=== PATIENT | male | born 1975 | race Caucasian/White ===

== ENCOUNTER → 2017-07-16 | Outpatient (CLI) | payer MEDICAID, SELFPAY | PROVIDERS: Visit Provider Nurse Practitioner Family | DX: R53.83 Other fatigue (principal); E55.9 Vitamin D deficiency, unspecified | CPT/HCPCS: 80053; 80061; 82306; 83036; 84439; 84443; 85025 ==

== ENCOUNTER → 2017-09-04 09:29 | Outpatient (REF) | payer MEDICAID, SELFPAY ==
[2017-09-05 10:51] LABS: T4 (Thyroxine) 8.4 ug/dl (4.7-13.3); Thyroid Stimulating Hormone 2.68 uIU/ml (0.358-3.740)
[2017-09-06 19:09] LABS: Vitamin D 25 Hydroxy 16.3 ng/mL (30.0-100.0)
== END ==
LOC: LAB 09:29
PROVIDERS: Visit Provider Nurse Practitioner Family
DX: R53.83 Other fatigue (principal); E55.9 Vitamin D deficiency, unspecified
CPT/HCPCS: 82652; 84436; 84443

== ENCOUNTER → 2017-09-05 09:29 | Outpatient (CLI) | payer MEDICAID, SELFPAY | PROVIDERS: Visit Provider Nurse Practitioner Family | DX: R53.83 Other fatigue (principal); E55.9 Vitamin D deficiency, unspecified ==

== ENCOUNTER → 2021-09-27 16:09 | Outpatient (CLI) | payer OTHER, SELFPAY ==
[2021-09-27 16:38] LABS: Basophils # 0.1 K/mm3 (0-0.2); Basophils % 1.4 % (0.1-2.0); Eosinophils # 0.1 K/mm3 (0.0-0.4); Eosinophils % 1.1 % (0.1-12.0); Hemoglobin 13.4 g/dL (14.1-18.0); Lymphocytes # 1.7 K/mm3 (0.7-4.5); Lymphocytes % 39.2 % (10-50); Mean Corpuscular Hemoglobin 32.5 pg (27.0-31.2); Mean Corpuscular Volume 101.7 fl (80-94); Monocytes # 0.3 K/mm3 (0.1-1.0); Monocytes % 5.9 % (1.7-9.3); Neutrophils # 2.3 K/mm3 (1.8-7.8); Neutrophils % 52.5 % (37.0-80.0); Platelet Count 207 K/mm3 (142-424); Red Blood Count 4.13 M/mm3 (4.60-6.20); Red Cell Distribution Width 12.9 % (11.5-17.5); White Blood Count 4.3 K/mm3 (4.8-10.8)
[2021-09-27 18:07] LABS: Alanine Aminotransferase 18 U/L (12-78); Albumin Level 4.1 g/dl (3.5-5.0); Alkaline Phosphatase 50 U/L (38-126); Anion Gap 9.1 mEq/L (5-15); Aspartate Amino Transferase 28 U/L (17-59); Bilirubin,Total 0.8 mg/dl (0.2-1.3); Blood Urea Nitrogen 12 mg/dl (9-20); Calcium 8.5 mg/dl (8.4-10.2); Carbon Dioxide 29 mmol/L (22.0-30.0); Chloride 102 mmol/L (98-107); Cholesterol 130 mg/dl (140-200); Estimated Glomerular Filt Rate 103 ml/min (>60); GFR (African American) 125 ML/MIN (>60); Globulin 2.1 g/dL (1.3-3.2); Glucose 97 mg/dl (74-100); HDL Cholesterol 43 mg/dl (40-60); Potassium 4.1 mmoL/L (3.5-5.1); Sodium 136 mmol/L (136-145); Total Protein,Serum 6.2 g/dl (6.3-8.2); Triglycerides 90 mg/dl (30-150); VLDL Cholesterol 18 mg/dL (0-40)
[2021-09-27 18:23] LABS: T4 (Thyroxine) 8.6 ug/dl (5.53-11.0)
[2021-09-27 18:37] LABS: Thyroid Stimulating Hormone 1.68 uIU/mL (0.465-4.68)
== END ==
PROVIDERS: PCP Nurse Practitioner Family; Visit Provider Internal Medicine
DX: R07.9 Chest pain, unspecified (principal)
CPT/HCPCS: 80053; 80061; 84436; 84443; 85025

== ENCOUNTER → 2021-10-23 13:03 | Outpatient (CLI) | payer OTHER, SELFPAY ==
--- NOTE | 2021-10-23 13:04 | CA_ITS ---
APPROVED REPORT Exam: Exercise Treadmill Technologist: Tiny Maya, Ht: 6 ft 4 in Wt: 266 lbs BSA: 2.50 m2 HR: 49 bpm BP: 124/81 mmHg Medical History Medications: BuPROPION HCI,,,,, Stress Test Details Test: Armando HR Resting HR: 55 bpm Max Heart Rate (APMHR): 172.479660 bpm Max HR Achieved: 150 bpm Target HR (85% APMHR): 146.702504 bpm % of APMHR: 87.21 Recovery HR: 78 bpm BP Resting BP: 113/74 mmHg Max BP: 210/78 mmHg Recovery BP: 153.0/82.0 mmHg ECG Resting ECG: Sinus tammy, ST-T abns inferiorly Clinical Exercise duration: 08:13 min Highest Stage Achieved: III Exercise capacity: 10.1 METs Stress ECG Conclusion Exercised 8:13 into stage III of Armando Protocol. Max HR: 150 %of PM: 87% Max BP: 210/90 METs: 10.1 Test stopped due to: SOA, Fatigue Symptoms: No CP Arrhythmias/Ectopy: Occ PVC, one V. couplet. ST-T Changes: 1mm horizontal ST depression laterally. Exaggeration of baseline ST-T abns inderiorly. Conclusion: Abn GXT. GXT only (no imaging) Test Summary Stage 3 02:00 14.0 3.4 150 . 210/ 78 . . REST . . . . . . . Standing REST 03:11 0.0 0.0 55 . 113/ 74 . . Stage 1 01:00 10.0 1.7 87 . . . . Stage 1 02:00 10.0 1.7 95 . . . . Stage 1 03:00 10.0 1.7 92 . 160/ 65 . . Stage 2 01:00 12.0 2.5 106 . . . . Stage 2 02:00 12.0 2.5 116 . . . . Stage 2 03:00 12.0 2.5 123 . 182/ 70 . . Stage 3 01:00 14.0 3.4 140 . . . . Stage 3 02:00 14.0 3.4 150 . 210/ 78 . . Stage 3 02:13 14.0 3.4 150 . 210/ 78 . Stop exercise at 08:13 RECOVERY 01:00 0.0 0.0 120 . . . . RECOVERY 02:00 0.0 0.0 109 . 210/ 90 . . RECOVERY 03:00 0.0 0.0 100 . 210/ 90 . . RECOVERY 04:00 0.0 0.0 81 . 210/ 90 . . RECOVERY 05:00 0.0 0.0 76 . 188/ 86 . . RECOVERY 06:00 0.0 0.0 85 . 156/ 84 . . RECOVERY 07:00 0.0 0.0 78 . 153/ 82 . . RECOVERY 07:25 0.0 0.0 85 . 153/ 82 . . Electronically signed by : Bulmaro Miller MD 10/23/2021 19:15:36
--- NOTE | 2021-10-23 13:04 | CA_ITS ---
APPROVED REPORT EXAM: Comprehensive 2D, Doppler, and color-flow Echocardiogram Signs Cleaner: Felisha Mills RVT Ht: 6 ft 4 in Wt: 266lbs BSA: 2.50 BP: 132/82 mmHg Indications: CP,SMOKER,YOUNGBLOOD 2D Dimensions LVOT 2.15 cm (M/F) 1.5-2.5 LA Volume 37.40 mL LA Volume Index 14.96 mL/m2 (M/F) 16-34 M-Mode Dimensions RVDd 2.42 cm (0.9-2.6) LA Diam 3.88 cm (1.9-4.0) LVDd 4.72 cm (3.5-5.7) Ao Diam 3.41 cm (2.0-3.7) LVDs 2.59 cm (3.5-5.7) IVSd 0.68 cm (0.6-1.1) PWd 1.40 cm (0.6-1.1) EF (Teich) 76.40% FS 45.10% EDV (Teich) 103.40 mL TAPSE 2.90 (<1.7) ESV (Teich) 24.40 mL LV Diastology E Decel Time 203.00 (160-240 msec) E/A Ratio 2.1 MED E' 12.00 (< 7 cm/sec) E'/MED E' Ratio 9.13 (>14) LAT E' 13.00 (<10 cm/sec) E/LAT E' Ratio 8.43 (>14) Aortic Valve AO Peak GR. 6.40 mmHg Mitral Valve MV E Max Pedrito. 110.00 (40-130 cm/s) MV A Velocity 52.00 (40-130 cm/s) E/A Ratio 2.12 MV Decel. Time 203.00 (160-240 ms) MV PHT 60.00 ms Pulmonary Valve PV Peak Velocity 85.00 (50-150 cm/s) Tricuspid Valve TR P. Velocity 252.00 cm/s RAP Estimate 10.00 mmHg RVSP 35.40 mmHg Left Ventricle Left atrium is normal size, left ventricle is normal size, there is no concentric left ventricular hypertrophy, visually estimated ejection fraction 55% with no regional wall motion abnormality, diastolic parameters are within normal range. Right Ventricle Right atrium and right ventricle are normal size and contractility. Aortic Valve Aortic valve is grossly normal, there is no aortic stenosis or aortic insufficiency. Mitral Valve Mitral valve leaflets are minimally thickened, there is trace mitral regurgitation. Tricuspid Valve Tricuspid valve grossly normal, there is trace tricuspid regurgitation, tricuspid regurgitation jet velocity is inadequate for calculation of the right ventricular systolic pressure. Pulmonic Valve Pulmonic valve is poorly visualized. Great Vessels Aortic root is normal size. Inferior vena cava is mildly dilated with no muscular collapse. Pericardium No significant pericardial effusion noted. Conclusion 1. Normal left ventricular size, preserved left ventricular systolic function, visually estimated ejection fraction 55% with no regional wall motion abnormality, diastolic parameters are within normal range. 2. Trace mitral and tricuspid regurgitation. 3. No significant pericardial effusion. 4. Inferior vena cava is mildly dilated with normal inspiratory collapse. Electronically signed by : Bulmaro Miller MD 10/23/2021 20:01:23
== END ==
PROVIDERS: PCP Nurse Practitioner Family; Visit Provider Nurse Practitioner Family
DX: R06.00 Dyspnea, unspecified (principal); R07.89 Other chest pain; Z72.0 Tobacco use; Z82.49 Family history of ischemic heart disease and other diseases of the circulatory system
CPT/HCPCS: 93017; 93306

== ENCOUNTER → 2021-11-14 12:08 | Outpatient (CLI) | payer OTHER, SELFPAY ==
--- NOTE | 2021-11-14 12:09 | NM_ITS ---
APPROVED REPORT Exam: Nuclear Stress Test Indication: TOB USE, FM HX, C.P., SOB, ABN GXT Patient Location: Outpatient Stress Tech: Tiny Paula [place] Tech:Georgie Willoughby, ARRT RT (R)(N)(M) Ht: 6 ft 4 in Wt: 260 lbs HR: 56 bpm BP: 122/68 mmHg BSA: 2.48 m2 BMI: 31.6 History: TOB USE, FM HX, C.P., SOB, ABN GXT Procedure: Patient received a 0.4 mg of intravenous Lexiscan, resting heart rate 56 bpm, resting blood pressure 122/68 mmHg, with Lexiscan maximum heart rate achived was 77 bpm which is Less than 85 % of the maximum predicted heart rate and blood pressure was 128/78 mmHg. With Lexiscan, patient denied any complaint of chest pain. Electrocardiogram Resting electrocardiogram shows sinus rhythm nonspecific ST-T changes, with Lexiscan there is less than 1.[address] segment depression noted from the baseline EKG. The EKG portion of the Lexiscan is nondiagnostic. Cardiac Stress and Resting SPECT Images: Cardiac Stress and Resting SPECT images were obtained using technetium 99m Myoview 31.5 mCi stress and 10.40 mCi at rest. Gated SPECT analysis of segmental wall motion and calculation of the ejection fraction also done. Cardiac stress and muscle SPECT images show uniform myocardial activity, computer derived ejection fraction 57% with no regional wall motion abnormality, right ventricle is normal size and contractility. Conclusion: 1. The EKG portion of the Lexiscan is nondiagnostic. 2. No scintigraphic evidence of reversible ischemia seen, computer derived ejection fraction is 57% with no regional wall motion abnormality, right ventricle is normal size and contractility. 3. Normal Lexiscan Myoview study. Electronically signed by : Bulmaro Miller MD 11/14/2021 20:45:38
--- NOTE | 2021-11-14 13:53 | CA_ITS ---
APPROVED REPORT Exam: Pharmacologic Technologist: Tiny Maya, Ht: 6 ft 4 in Wt: 272 lbs BSA: 2.52 m2 HR: 47 bpm BP: 122/68 mmHg Medical History Medications: Aspirin,,,,, BuPROPION HCI,,,,, Stress Test Details Test: LEXISCAN HR Resting HR: 56 bpm Max Heart Rate (APMHR): 172.487819 bpm Max HR Achieved: 86 bpm Target HR (85% APMHR): 146.222262 bpm % of APMHR: 50.00 Recovery HR: 54 bpm BP Resting BP: 122/68 mmHg Max BP: 137/74 mmHg Recovery BP: 129.0/72.0 mmHg ECG Resting ECG: marked sinus tammy, ST-T abns inferiorly Clinical Exercise duration: 04:05 min Highest Stage Achieved: Stress ECG Conclusion Symptoms: SOA, mild head discomfort. No CP. Arrhythmias/Ectopy: None ST-T Changes: No significant changes. Conclusion: Non-diagnostic Lexiscan stress. Myoview images reported separately. Test Summary REST 02:35 . . 56 . 122/ 68 . . Stage 1 01:00 . . 77 . . . . Stage 2 01:00 . . 59 . 128/ 78 . . Stage 3 01:00 . . 58 . 137/ 74 . . Stage 4 01:00 . . 59 . . . . Stage 4 01:05 . . 61 . 124/ 76 . Stop exercise at 04:05 RECOVERY 01:00 . . 52 . . . . RECOVERY 02:00 . . 48 . 133/ 78 . . RECOVERY 03:00 . . 49 . 129/ 72 . . RECOVERY 03:15 . . 54 . 129/ 72 . . Electronically signed by : Bulmaro Miller MD 11/14/2021 20:39:21
== END ==
PROVIDERS: PCP Nurse Practitioner Family; Visit Provider Nurse Practitioner Family
DX: R94.31 Abnormal electrocardiogram [ECG] [EKG] (principal); Z72.0 Tobacco use; Z82.49 Family history of ischemic heart disease and other diseases of the circulatory system
CPT/HCPCS: 78452; 93017; A9502; J2785

== ENCOUNTER 2023-02-25 11:35 | Emergency (ER) | payer OTHER, SELFPAY ==
[2023-02-25 11:36] VITALS: BP 143/67; PULSE 76; RESP 16; TEMP 37.1; O2SAT 98; BMI 25.0
[2023-02-25 11:44] LABS: Influenza A, PCR Not Detected (NotDetected); Influenza B, PCR Not Detected (NotDetected)
[2023-02-25 12:01] VITALS: BP 118/69; PULSE 69; O2SAT 96
[2023-02-25 12:09] LABS: Coronavirus 19, PCR Detected (NotDetected)
--- NOTE | 2023-02-25 12:13 | XR_ITS ---
FINAL REPORT CLINICAL HISTORY: isolated L wheezing with COVID FINDINGS: The heart size is normal. The mediastinum is within normal limits. There is no acute cardiopulmonary process. There is no pleural effusion. There is no pneumothorax. The bony thorax is intact. IMPRESSION: No acute cardiopulmonary process. Reviewed, Interpreted and Dictated by Eddie Solo III, MD Transcribed by Denver Chery Authenticated and [facility]
[2023-02-25 12:31] VITALS: BP 108/60; PULSE 69; O2SAT 96
--- NOTE | 2023-02-25 12:45 | HMH.EDGENADL ---
Discharge Plan Disposition Patient Disposition: Home, Self-Care Prescriptions Prescriptions: No Action aspirin [Adult Low Dose Aspirin] 81 mg tablet,delayed release (DR/EC) 81 mg PO DAILY Qty: 30 2RF bupropion HCl 75 mg tablet See Rx Instructions .ROUTE .COMPLEX Qty: 60 0RF Dose Instruction: TAKE 1 TABLET BY MOUTH TWICE DAILY Rx Instructions: TAKE 1 TABLET BY MOUTH TWICE DAILY Referrals Follow up/Referrals: Provider,Referral, MD [Primary Care Provider] - See instructions Activity Restrictions/Add. Instructions Additional Instructions/Restrictions: Take Tylenol 1000 mg every 6 hours (4 times daily) and ibuprofen 400 mg every 6 hours (4 times daily) as needed with food and water to prevent GI upset and kidney damage. If you have any worsening of your condition or any other concerning signs or symptoms, return to the emergency department or your primary care doctor for further evaluation. Clinical Impressions Clinical Impression: COVID-19 Discharge ED Provider: Mitchell Hallman General Adult HPI General Chief complaint: Upper Respiratory Infection Stated complaint: body aches, chills, weakness Time Seen by Provider: 02/25/23 11:39 Mode of Arrival: Ambulatory Source of Information: Patient Limitations: No Limitations Description of Symptoms (Recalled from ER Triage Doc. by RN): Presents to ED with c/o fatigue/headache/chills with 2 positive at home COVID tests. 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 Denies fever/N/V/D. History of Present Illness HPI narrative: Is a 47-year-old male with history of smoking presenting with multiple complaints. Patient states that he started feeling tired 2 days prior to arrival. 1 day prior to arrival, started having fatigue which was worsening, as well as chills with no objective fever. Took 2 COVID tests at home which were positive. Patient denies nausea vomiting, abdominal pain, rash, difficulty breathing, difficulty swallowing, difficulty or pain with range of motion of neck, neurologic deficits, but has had acute on chronic worsening of cough with production of white sputum. Took 400 mg ibuprofen a few hours prior to arrival with minimal relief. Related Data Previous Rx's Medication Instructions Recorded aspirin 81 mg tablet,delayed 81 mg PO DAILY #30 tabs 10/17/21 release (Adult Low Dose Aspirin) bupropion HCl 75 mg tablet See Rx Instructions .Route 09/12/22 .COMPLEX #60 tabs Allergies Allergy/AdvReac Type Severity Reaction Status Date / Time nickel Allergy Rash Verified 11/20/21 14:20 [facility] Disclaimer: The information contained in this section may have been updated after the patient was seen, as this information can be updated by other users. Medical History Anxiety Depression Dyspnea Family history of heart disease Tobacco use Social History Smoking Status: Current every day smoker tobacco type: cigarettes and e-cigarettes alcohol intake: current substance use type: denies use and marijuana current occupational status: employed Travel in the last 8 weeks: [facility] housing: house ROS Obtained: Yes All systems reviewed & no additional complaints except as documented Physical Exam General General appearance: alert, in no apparent distress and other ( ) Head Head exam: atraumatic and normocephalic Eye Eye exam: Present normal appearance, PERRL and EOMI ENT ENT exam: Present mucous membranes moist Neck Neck exam: Present normal inspection, full ROM and trachea midline Respiratory Respiratory exam: Present wheezes (Isolated, left side); Absent respiratory distress, stridor, accessory muscle use or prolonged expiratory phase Cardiovascular Cardiovascular exam: Present regular rate and normal rhythm Abdominal Exam Abdominal exam: Present soft; Absent distention, tenderness, guarding, rebound, rigidity or normal bowel sounds Extremities Exam Extremities exam: Absent edema Neurologica
[2023-02-25 13:03] VITALS: BP 118/68; PULSE 56; RESP 16; TEMP 37.1; O2SAT 98
== END 2023-02-25 13:05 | disposition home or self-care (01) ==
PROVIDERS: Emergency Provider Emergency Medicine
DX: U07.1 COVID-19 (principal); R53.1 Weakness; R51.9 Headache, unspecified; F41.9 Anxiety disorder, unspecified; F32.A Depression, unspecified; F17.210 Nicotine dependence, cigarettes, uncomplicated
CPT/HCPCS: 71045; 87636; 99283